=== PATIENT | male | born 1995 ===

== ENCOUNTER 2020-05-09 07:24 | Outpatient (CLI) | payer OTHER ==
[2020-05-12] MEDS ORDERED: SYNTHROID100 MCG PO (13:44)
[2020-05-12] MEDS ORDERED: VITAMIN D-40010 MCG PO (13:45)
== END 2020-05-09 08:07 | disposition home or self-care (01) ==
LOC: LAB 07:24
PROVIDERS: ATTEND Surgery
DX: Z11.59 Encounter for screening for other viral diseases (principal); Z20.828 Contact with and (suspected) exposure to other viral communicable diseases

== ENCOUNTER 2020-05-14 07:50 | Day surgery (SDC) | payer OTHER ==
[~2020-05-14 07:50] MED LIST: SYNTHROID100 MCG PO; VITAMIN D-40010 MCG PO
[2020-05-14] MEDS ORDERED: ULTRACET PO (11:18)
[2020-05-14] MEDS ORDERED: KEFLEX500 MG PO (11:18)
== END 2020-05-14 13:55 | disposition home or self-care (01) ==
LOC: CIR.AMB 07:50
PROVIDERS: ATTEND Surgery
DX: L05.01 Pilonidal cyst with abscess (principal); Z20.828 Contact with and (suspected) exposure to other viral communicable diseases

== ENCOUNTER 2022-01-28 08:39 | Outpatient (CLI) | payer OTHER ==
[~2022-01-28 08:39] MED LIST changes: +KEFLEX500 MG PO; +ULTRACET PO
== END 2022-01-28 08:50 | disposition home or self-care (01) ==
LOC: RX STUDY 08:39
PROVIDERS: ATTEND Internal Medicine Gastroenterology
DX: Q90.9 Down syndrome, unspecified (principal); E03.9 Hypothyroidism, unspecified; R13.14 Dysphagia, pharyngoesophageal phase

== ENCOUNTER 2022-02-05 05:50 | Day surgery (SDC) | payer OTHER | END 2022-02-05 12:10 | disposition home or self-care (01) | LOC: AMB-ENDOS 05:50 | PROVIDERS: ATTEND Internal Medicine Gastroenterology | DX: R13.14 Dysphagia, pharyngoesophageal phase (principal); Q90.9 Down syndrome, unspecified; Z91.013 Allergy to seafood; Z20.822 Contact with and (suspected) exposure to COVID-19 ==

== ENCOUNTER 2024-04-30 07:57 | Outpatient (CLI) | payer OTHER | END 2024-04-30 08:10 | disposition home or self-care (01) | LOC: RX STUDY 07:57 | PROVIDERS: ATTEND Internal Medicine Gastroenterology | DX: K59.01 Slow transit constipation (principal); R13.14 Dysphagia, pharyngoesophageal phase; E03.9 Hypothyroidism, unspecified; Q90.9 Down syndrome, unspecified ==